=== PATIENT | female | born 1980 | race Hispanic/Latino ===

== ENCOUNTER 2024-06-25 02:40 | Inpatient (IN) | payer SELFPAY ==
[2024-06-25] MEDS ORDERED: Morphine 2 MG/ML VIAL SLOW IVP PRN (04:13)
[2024-06-25] MEDS: Piperacillin/Tazobactam 3.375 GM in Sodium Chloride 0.9% 100 ML IVPB SCH ×2 (05:09→09:07)
[2024-06-25] MEDS: Lactated Ringer's 1,000 ML IV SCH (05:11)
[2024-06-25] MEDS: Acetaminophen 500 MG TAB PO PRN (05:33)
[2024-06-25] MEDS ORDERED: Piperacillin/Tazobactam 3.375 GM in Sodium Chloride 0.9% 100 ML IVPB SCH (06:00)
[2024-06-25] MEDS: Famotidine/PF 20 mg/2ml Vial SLOW IVP SCH (09:08)
[2024-06-25] MEDS: Ondansetron PF 4 MG/2 ML Vial IVP PRN (10:44)
[2024-06-25 12:39] LABS: #Basophils 0.03 10x3/uL (0.0-0.2); #Eosinphils 0.16 10x3/uL (0.0-0.5); #Monocytes 0.59 10x3/uL (0.0-1.1); #Neutrophils 5.05 10x3/uL (1.5-8.4); %Basophils 0.3 % (0.0-2.0); %Eosinophils 1.8 % (0.0-6.0); %Lymphocytes 34.6 % (18.0-47.0); %Monocytes 6.6 % (0.0-10.0); %Neutrophils 56.5 % (40.0-75.0); Hemoglobin 12.7 g/dL (12.0-15.5); Mean Corpuscular HGB CONC 34.3 g/dL (32.0-36.0); Mean Corpuscular Hemoglobin 30.2 pg (27.0-33.0); Mean Corpuscular Volume 88.1 fL (81.6-98.3); Mean Platelet Volume 11.1 fL (7.4-10.4); Platelet Count 153 10x3/uL (150-450); RBC Distribution Width 13.1 % (11.5-14.5); White Blood Cell (WBC) Count 8.9 10x3/uL (3.5-10.5)
[2024-06-25 13:09] LABS: ALT (SGPT) 27 U/L (8-55); AST (SGOT) 22 U/L (5-34); Albumin 3.1 g/dL (3.5-5.0); Alkaline Phosphatase 62 U/L (40-110); Anion Gap 11 mmol/L (10-20); BUN (Urea Nitrogen) 7 mg/dL (7.0-18.7); Bilirubin, Total 0.4 mg/dL (0.2-1.2); Calc. Creatinine Clearance 139 mL/min (70-130); Calcium 8.6 mg/dL (7.8-10.44); Carbon Dioxide 24 mmol/L (22-29); Chloride 108 mmol/L (98-107); Estimated GFR 112; Globulin 2.2 g/dL (2.4-3.5); Glucose 92 mg/dL (70-105); Potassium 3.6 mmol/L (3.5-5.1); Protein, Total 5.3 g/dL (6.0-8.3); Sodium 139 mmol/L (136-145)
[2024-06-25] MEDS ORDERED: Promethazine HCl 12.5 MG in Sodium Chloride 0.9% 50 ML IVPB PRN (13:48)
[2024-06-25] MEDS: Metoclopramide HCl 10 MG (2 mL) VIAL IVP PRN (14:48)
[2024-06-25] MEDS ORDERED: Sodium Chloride 0.9% 1,000 ML IV SCH (17:45)
[2024-06-25] MEDS: Acetaminophen/Codeine 30-300mg Tablet PO PRN (19:21)
[2024-06-25] MEDS: Cyclobenzaprine 10 MG TAB PO SCH (23:13)
[2024-06-25] MEDS: Ketorolac Tromethamine 30 MG (1 mL) VIAL IM SCH (23:13)
[2024-06-26] MEDS: Zolpidem Tartrate 5 MG TAB PO SCH (00:26)
[2024-06-26] MEDS: Cyclobenzaprine 10 MG TAB PO SCH (07:15)
[2024-06-26] MEDS ORDERED: Bupivacaine HCl 0.5%/Epinephrine 1:200,000/PF 30 ml Vial ONE (07:46)
[2024-06-26] MEDS ORDERED: Rocuronium Bromide 10 MG/ML (10ML VIAL) ONE (07:46)
[2024-06-26] MEDS ORDERED: Lidocaine 1% PF 5 ML VIAL ONE (07:46)
[2024-06-26] MEDS ORDERED: Midazolam HCl 2 mg/2 ml Vial ONE ×2 (07:46→08:18)
[2024-06-26] MEDS ORDERED: Ondansetron PF 4 MG/2 ML Vial ONE (07:46)
[2024-06-26] MEDS ORDERED: Dexamethasone 4 mg/ml Vial ONE (07:46)
[2024-06-26] MEDS ORDERED: PROPOFOL 20 ML ONE (07:46)
[2024-06-26] MEDS ORDERED: fentaNYL 50 mcg/mL 1 mL Vial ONE ×4 (07:46→10:18)
[2024-06-26 08:16] LABS: BHCG - Serum Negative (NEGATIVE); Pregs Control Background? CLEAR/WHITE (CLR/WHITE); Pregs Control Bar Appear? YES (CONTROL BAR)
[2024-06-26] MEDS ORDERED: SUGAMMADEX SODIUM 200 MG/2 ML VIAL ONE (09:30)
[2024-06-26] MEDS ORDERED: Ketorolac Tromethamine 30 MG (1 mL) VIAL ONE (10:04)
[2024-06-26 10:56] VITALS: TEMP 97.7
[2024-06-26 13:55] VITALS: BP 107/66
== END 2024-06-26 14:30 | disposition home or self-care (01) | DRG 742 ==
LOC: CSHERS 02:40 → CSHPP 04:48
PROVIDERS: ADMIT Obstetrics & Gynecology; ATTEND Obstetrics & Gynecology
PROC: 0UT64ZZ Resection of Left Fallopian Tube, Percutaneous Endoscopic Approach (ICD-10-PCS; principal; 2024-06-26)
PROC: 0UB14ZZ Excision of Left Ovary, Percutaneous Endoscopic Approach (ICD-10-PCS; 2024-06-26)
PROC: 0DNU4ZZ Release Omentum, Percutaneous Endoscopic Approach (ICD-10-PCS; 2024-06-26)
DX: N83.512 Torsion of left ovary and ovarian pedicle (principal); N12 Tubulo-interstitial nephritis, not specified as acute or chronic; N83.202 Unspecified ovarian cyst, left side; F17.210 Nicotine dependence, cigarettes, uncomplicated; F31.9 Bipolar disorder, unspecified; N83.312 Acquired atrophy of left ovary; K66.0 Peritoneal adhesions (postprocedural) (postinfection); Z98.891 History of uterine scar from previous surgery
CPT/HCPCS: 36415; 76856; 80053; 84703; 85025; 86850; 86900; 86901; 88307; 99284; J1100; J1885; J2250; J2405; J2543; J2704; J2765; J3010; J3490; J7120